=== PATIENT | male | born 1980 | race Caucasian/White ===

== ENCOUNTER 2023-12-09 17:50 | Emergency (ER) | payer MEDICAID ==
[2023-12-09] MEDS: Lidocaine 1% with EPINEPHrine 1:100,000 20 ML MDV INJECT ONE (18:00)
[2023-12-09] MEDS: Bacitracin Oint 1 GM U/D Packet TOP ONE (18:23)
[2023-12-09] MEDS: Lidocaine 1% with EPINEPHrine 1:100,000 50 ML MDV INFILT ONE (18:24)
[2023-12-09 19:04] VITALS: BP 118/76; PULSE 67
== END 2023-12-09 18:35 | disposition home or self-care (01) ==
LOC: LB.ED 17:50
DX: S61.211A Laceration without foreign body of left index finger without damage to nail, initial encounter (principal); F17.210 Nicotine dependence, cigarettes, uncomplicated; Z90.49 Acquired absence of other specified parts of digestive tract; W26.0XXA Contact with knife, initial encounter
CPT/HCPCS: 12002; 99282